=== PATIENT | male | born 1980 ===

== ENCOUNTER 2023-01-19 08:15 | Emergency (ER) | payer MEDICARE, MEDICAID ==
[2023-01-19] MEDS ORDERED: Acetaminophen 650 MG Supp RECTAL ONE (08:16)
[2023-01-19] MEDS ORDERED: fentaNYL 100 MCG/2 ML SDV IV ONE ×2 (08:16)
[2023-01-19] MEDS ORDERED: Etomidate 2 MG/ML 10 ML SDV IV ONE (08:16)
[2023-01-19] MEDS ORDERED: SODIUM CHLORIDE 0.9% IV ONE (08:16)
[2023-01-19] MEDS ORDERED: Midazolam 1 MG/ML 2 ML SDV IV ONE (08:16)
[2023-01-19] MEDS ORDERED: fentaNYL 250 MCG in Sodium Chloride 0.9% 250 ML IV ONE (08:16)
[2023-01-19] MEDS ORDERED: Rocuronium 100 MG/10 ML MDV IV ONE (08:16)
[2023-01-19] MEDS ORDERED: Nitroglycerin/D5W 25 MG/250 ML BOTTLE IV ONE (08:16)
[2023-01-19] MEDS ORDERED: MIDAZOLAM IV ONE (08:16)
[2023-01-19] MEDS ORDERED: hydrALAZINE 20 MG/ML SDV IV ONE (08:16)
[2023-01-19] MEDS ORDERED: Sodium Chloride 0.9% 10 ML Syringe FLUSH PRN (08:23)
[2023-01-19 08:34] LABS: BASOPHILS PERCENT AUTO 0.1 % (0.0-1.0); EOSINOPHILS PERCENT AUTO 1.2 % (1.0-3.0); HEMATOCRIT 36.6 % (40.0-54.0); HEMOGLOBIN 12.1 g/dL (14.0-18.0); LYMPHOCYTES PERCENT AUTO 8.1 % (20.5-50.1); MEAN CORPUSCULAR HEMOGLOBIN 30.3 pg (27.0-34.0); MEAN CORPUSCULAR HGB CONC 33.1 g/dL (33.0-35.0); MEAN CORPUSCULAR VOLUME 91.7 fL (80-100); MONOCYTES PERCENT AUTO 7.2 % (2-8); NEUTROPHILS PERCENT AUTO 83.4 % (42.2-75.2); PLATELET COUNT,PLT 98 10^3/uL (150-450); RED BLOOD CELL COUNT 3.99 10^6/uL (4.6-6.2); WHITE BLOOD CELL COUNT,WBC 10.1 10^3/uL (5.0-10.0)
[2023-01-19] MEDS ORDERED: Furosemide 40 MG/4 ML VIAL IVPUSH ONE (08:40)
[2023-01-19] MEDS ORDERED: Nitroglycerin/D5W 25 MG/250 ML BOTTLE IV SCH ×2 (08:45→11:25)
[2023-01-19 08:57] LABS: B-TYPE NATRIURETIC PEPTIDE,BNP 3720 pg/ml (0-100); LACTIC ACID 1.5 mmol/L (0.4-2.0)
[2023-01-19 09:03] LABS: A/G RATIO 0.7; ALANINE AMINOTRANSFERASE,ALT 53 U/L (16-63); ALBUMIN 3.6 g/dL (3.4-5.0); ALKALINE PHOSPHATASE 168 U/L (46-116); ANION GAP 24.1 mEq/L (7-13); ASPARTATE AMNIOTRANSFERASE,AST 41 U/L (15-37); BLOOD UREA NITROGEN,BUN 123 mg/dL (7-18); BUN/CREATININE RATIO 9.3 (No establ ref range); C-REACTIVE PROTEIN 4.3 mg/dL (0.0-0.9); CALCIUM 10.2 mg/dL (8.5-10.1); CARBON DIOXIDE,CO2 22 mmol/L (21-32); CHLORIDE,CL 99 mmol/L (98-107); GLUCOSE RANDOM 103 mg/dL (70-99); POTASSIUM,K 6.1 mmol/L (3.5-5.1); PROTEIN TOTAL,TP 9.1 g/dL (6.4-8.2); SODIUM,NA 139 mmol/L (136-145)
[2023-01-19] MEDS ORDERED: hydrALAZINE 20 MG/ML SDV IVPUSH ONE ×3 (09:05→10:49)
[2023-01-19 09:06] LABS: CREATININE 13.17 mg/dL (0.70-1.30); ESTIMATED GFR 4 mL/min (>=60)
[2023-01-19] MEDS ORDERED: Sodium Bicarbonate 8.4% 50 MEQ/50 ML Syringe IVPUSH ONE (09:11)
[2023-01-19] MEDS ORDERED: Insulin Regular, Human 100 Units/ML 3 ML Vial IV ONE (09:12)
[2023-01-19] MEDS ORDERED: Calcium Chloride 10% 1 GM/10 ML Syringe IVPUSH ONE (09:12)
[2023-01-19] MEDS ORDERED: Glucagon,Human Recombinant 1 MG Vial IM PRN (09:12)
[2023-01-19] MEDS ORDERED: 50% Dextrose in Water 50 ML Syringe IVPUSH ONE (09:12)
[2023-01-19] MEDS ORDERED: 50% Dextrose in Water 50 ML Syringe IVPUSH PRN (09:12)
[2023-01-19] MEDS: Sodium Bicarbonate 8.4% 50 MEQ/50 ML Syringe IVPUSH ONE ×2 (09:16→09:20)
[2023-01-19] MEDS ORDERED: LORazepam 2 MG/ML SDV IVPUSH ONE (09:23)
[2023-01-19] MEDS ORDERED: fentaNYL 250 MCG/5 ML SDV ONE (09:57)
[2023-01-19] MEDS ORDERED: Etomidate 2 MG/ML 10 ML SDV IVPUSH ONE (10:01)
[2023-01-19] MEDS ORDERED: Rocuronium 100 MG/10 ML MDV IVPUSH ONE (10:01)
[2023-01-19] MEDS ORDERED: fentaNYL 100 MCG/2 ML SDV IVPUSH ONE ×3 (10:05→10:50)
[2023-01-19] MEDS ORDERED: fentaNYL 100 MCG/2 ML SDV ONE ×2 (10:05→10:48)
[2023-01-19] MEDS ORDERED: fentaNYL 250 MCG in Sodium Chloride 0.9% 50 ML IV ONE (10:21)
[2023-01-19] MEDS ORDERED: Midazolam 50 MG in Sodium Chloride 0.9% 40 ML IV SCH (10:30)
[2023-01-19] MEDS ORDERED: hydrALAZINE 20 MG/ML SDV ONE (10:33)
[2023-01-19] MEDS ORDERED: Midazolam 1 MG/ML 2 ML SDV ONE (10:49)
[2023-01-19] MEDS ORDERED: Midazolam 5 MG/ML 10 ML MDV IV ONE (10:51)
[2023-01-19] MEDS ORDERED: Nitroglycerin/D5W 25 MG/250 ML BOTTLE ONE (10:54)
[2023-01-19] MEDS ORDERED: Acetaminophen 650 MG Supp ONE (11:15)
[2023-01-19] MEDS ORDERED: Acetaminophen 650 MG Supp RECTAL STA (13:24)
== END 2023-01-19 11:25 ==
LOC: DL.ED 08:15
DX: J81.0 Acute pulmonary edema (principal); E87.5 Hyperkalemia; I10 Essential (primary) hypertension; Z72.0 Tobacco use
CPT/HCPCS: 31500; 36415; 43752; 71045; 80053; 82947; 83605; 83880; 85025; 86140; 93005; 93010; 94660; 96365; 96366; 96375; 99284; 99285; A9270; J0360; J1815; J1940; J2060; J2250; J3010; J3490